=== PATIENT | female | born 1960 | race Caucasian/White ===

== ENCOUNTER → 2021-03-29 | Day surgery (SDC) | payer OTHER ==
[~2021-03-29] VITALS: Ht 167.6 cm; Wt 78.0 kg
[~2021-03-29] MED LIST: ALLOPURINOL 10100 MG PO; CALCIUM; CALCIUM/VITAMIN D3 PO; ESOMEPRAZOLE MA40 MG PO; NORCO 5-325 TA1 EACH PO; ONDANSETRON ODT8 MG PO; POTASSIUM CHLORIDE PO; TRIAMTERENE-HC1 EACH PO
[2021-03-29 09:27] LABS: HCT 43.6 % (37.0-47.0); HGB 15.7 g/dl (12.5-16.0); MCH 32.5 pg (25.0-31.0); MCV 90.3 fL (78.0-100.0); MPV 9.9 fL (6.0-9.5); RBC 4.83 M/uL (4.20-5.40); RDW 12.2 % (11.5-14.0); WBC 8.9 K/uL (4.0-10.5)
[2021-03-29 09:49] LABS: ALBUMIN 4.5 g/dL (3.4-5.0); BILIRUBIN - TOTAL 2.9 mg/dL (0.2-1.0); BUN/CREAT RATIO (CALC) 19.4 RATIO; CREATININE 0.67 mg/dL (0.51-0.95); GLOBULIN (CALCULATION) 3.9 g/dL; POTASSIUM 3.4 mmol/L (3.5-5.1); TOTAL PROTEIN 8.4 g/dL (6.4-8.2)
== END | disposition home or self-care (01) ==
LOC: FAS 08:13
PROVIDERS: Surgery
DX: K64.1 Second degree hemorrhoids (principal); K21.00 Gastro-esophageal reflux disease with esophagitis, without bleeding; I10 Essential (primary) hypertension; E78.5 Hyperlipidemia, unspecified; E04.1 Nontoxic single thyroid nodule; M19.90 Unspecified osteoarthritis, unspecified site; K27.9 Peptic ulcer, site unspecified, unspecified as acute or chronic, without hemorrhage or perforation; Z20.822 Contact with and (suspected) exposure to COVID-19; Z79.899 Other long term (current) drug therapy; Z98.890 Other specified postprocedural states; Z82.49 Family history of ischemic heart disease and other diseases of the circulatory system
CPT/HCPCS: 36415; 80053; J1100; J2704; J7120